=== PATIENT | female | born 1980 | race Caucasian/White ===

== ENCOUNTER 2023-01-10 07:38 | Emergency (ER) | payer MEDICARE ==
[~2023-01-10] VITALS: Ht 172.7 cm; Wt 79.4 kg
[2023-01-10 07:58] VITALS: BP 129/89
[2023-01-10 08:00] VITALS: BP 122/79
[2023-01-10 08:20] VITALS: BP 105/71
[2023-01-10 08:23] LABS: BASO% 0.5 % (0-3); EOS% 1.9 % (0-8); HEMATOCRIT 40.1 % (37.0-47.0); HEMOGLOBIN 13.8 g/dl (12.0-16.0); LYMPH% 36.2 % (15-41); MEAN CELL VOLUME 90.5 fL CALC (80.0-100.0); MEAN CORPUSCULAR HGB 31.2 pG CALC (26.0-32.0); MEAN CORPUSCULAR HGB CONC 34.4 g/dL CAL (32.0-36.0); MONO% 10.6 % (2-13); NEUT# 2.15 thou/uL (2.00-7.15); NEUT% 50.8 % (42-76); RED BLOOD COUNT 4.43 mill/uL (4.20-5.60)
[2023-01-10 08:38] LABS: URINE BILIRUBIN - DIPSTICK NEGATIVE (NEGATIVE); URINE BLOOD DIPSTICK LARGE (NEGATIVE); URINE GLUCOSE - DIPSTICK NEGATIVE (NEGATIVE); URINE KETONE NEGATIVE (NEGATIVE); URINE LEUK ESTERASE NEGATIVE (NEGATIVE); URINE PROTEIN - DIPSTICK TRACE mg/dL (NEG-TRACE); URINE UROBILINOGEN - DIPSTICK 0.2 E.U./dL (0.2)
[2023-01-10 08:41] LABS: URINE COLOR RED; URINE NITRITE - DIPSTICK NEGATIVE (Negative)
[2023-01-10 08:45] LABS: URINE RBC TNTC RBC/hpf (0-5)
[2023-01-10 10:05] VITALS: BP 105/71
== END 2023-01-10 10:13 | disposition home or self-care (01) ==
LOC: ED 07:38
PROVIDERS: Family Medicine
DX: N93.9 Abnormal uterine and vaginal bleeding, unspecified (principal)